=== PATIENT | female | born 1955 | race Caucasian/White ===

== ENCOUNTER 2017-08-09 21:34 | Emergency (ER) | payer BC ==
--- NOTE | 2017-08-09 21:44 | PDOC ---
History of Present Illness - General History Source: Patient Exam Limitations: No Limitations - History of Present Illness Initial Comments: 08/09/17 21:58 The patient is a 62 year old female with past medical history of depression and sciatica who presents to the ED with complaints of a left sided sciatica flare up that began today. The patient states that she is from [place] but is here for the month due to her mother undergoing a Gamma knife procedure. The patient states that her sciatica is overseen by a pain management physician but she forgot her medications at home. She denies any loss of sensation/tingling to the extremity. She denies any fever, chills, nausea, vomiting, diarrhea, cough, SOB, CP or urinary symptoms. <Johana Oneil - Last Filed: 08/09/17 21:58> <Veda Verdin - Last Filed: 08/10/17 02:53> - General Chief Complaint: Pain Stated Complaint: SCIATIC PAIN Time Seen by Provider: 08/09/17 21:43 Past History <Johana Oneil - Last Filed: 08/09/17 21:58> <Veda Verdin - Last Filed: 08/10/17 02:53> - Past Medical History Allergies/Adverse Reactions: Allergies Allergy/AdvReac Type Severity Reaction Status Date / Time No Known Allergies Allergy Unverified 08/09/17 21:35 Home Medications: Ambulatory Orders Aripiprazole [Abilify -] 30 mg PO DAILY 08/09/17 Clonazepam [Klonopin] 2 mg PO TID 08/09/17 Hydrocodone/Acetaminophen [Vicodin Es 7.5-300 mg Tablet] 2 each PO TID #30 tablet MDD 6 08/09/17 Hydrocodone/Acetaminophen [Vicodin Hp 10-300 mg Tablet] 1 each PO QID 08/09/17 Naproxen [Naprosyn -] 250 mg PO BID #60 tablet 08/09/17 Naproxen [Naprosyn -] 375 mg PO BID PRN 08/09/17 Trazodone HCl [Desyrel -] 225 mg PO HS 08/09/17 Review of Systems - Review of Systems Able to Perform ROS?: Yes Comments:: 08/09/17 21:58 CONSTITUTIONAL: Absent: fever, chills, diaphoresis, generalized weakness, malaise, loss of appetite HEENT: Absent: rhinorrhea, nasal congestion, throat pain, throat swelling, difficulty swallowing, mouth swelling, ear pain, eye pain, visual Changes CARDIOVASCULAR: Absent: chest pain, syncope, palpitations, irregular heart rate, lightheadedness , peripheral edema RESPIRATORY: Absent: cough, shortness of breath, dyspnea with exertion, orthopnea, wheezing, stridor, hemoptysis GASTROINTESTINAL: Absent: abdominal pain, abdominal distension, nausea, vomiting, diarrhea, constipation, melena, hematochezia GENITOURINARY: Absent: dysuria, frequency, urgency, hesitancy, hematuria, flank pain, genital pain MUSCULOSKELETAL: Present: left leg/buttock pain SKIN: Absent: rash, itching, pallor HEMATOLOGIC/IMMUNOLOGIC: Absent: easy bleeding, easy bruising, lymphadenopathy, frequent infections ENDOCRINE: Absent: unexplained weight gain, unexplained weight loss, heat intolerance, cold intolerance NEUROLOGIC: Present: Absent: headache, focal weakness or paresthesias, dizziness, unsteady gait, seizure, mental status changes, bladder or bowel incontinence PSYCHIATRIC: Absent: anxiety, depression, suicidal or homicidal ideation, hallucinations. All Other Systems: Reviewed and Negative <[facility] - Last Filed: 08/09/17 21:58> *Physical Exam - Vital Signs Last Vital Signs Temp Pulse Resp BP Pulse Ox 98.3 F 80 18 137/64 97 08/09/17 21:44 08/09/17 21:44 08/09/17 21:44 08/09/17 21:44 08/09/17 21:44 - Physical Exam Comments: 08/09/17 21:59 GENERAL: Well developed, well nourished. Awake and alert. No acute distress. HEENT: Normocephalic, atraumatic. PERRLA, EOMI. No conjunctival pallor. Sclera are non- icteric. Moist mucous membranes. Oropharynx is clear. NECK: Supple. Full ROM. No JVD. Carotid pulses 2+ and symmetric, without bruits. No thyromegaly. No lymphadenopathy. CARDIOVASCULAR: Regular rate and rhythm. No murmurs, rubs, or gallops. Distal pulses are 2+ and symmetric. PULMONARY: No evidence of respiratory distress. Lungs clear to auscultation bilaterally. No wheezing, rales or rhonchi. ABDOMINAL: Soft. Non-tender. Non-distended. No rebound or guarding. No organomegaly. Normoactive bowel sounds. MUSCULOSKELETAL Normal range of motion at all joints. No bony deformities or tenderness. No CVA tenderness. EXTREMITIES: No cyanosis. No clubbing. No edema. No calf tenderness. SKIN: Warm and dry. Normal capillary refill. No rashes. No jaundice. NEUROLOGICAL: Alert, awake, appropriate. Cranial nerves 2-12 intact. No deficits to light touch and temperature in face, upper extremities and lower extremities. No motor deficits in the in face, upper extremities and lower extremities. Normoreflexic in the upper and lower extremities. Normal speech. Toes are down-going bilaterally. Gait is normal without ataxia. PSYCHIATRIC: Cooperative. Good eye contact. Appropriate mood and affect. <Johana Oneil - Last Filed: 08/09/17 21:58> Medical Decision Making - Medical Decision Making 08/10/17 02:50 Pt has chronic sciatica and she left her narcotics and naproxen in [facility], where she lives. Now she is in [place] visiting her daughter and she needs her pain meds. She states that her sciatica pain is severe, however exam is normal. Pt will be give a 5 day supply of hydrocodone ES. Pt will be asked to call her PMD in [facility] to re-prescribe her meds, whiole she is in [place] visiting family. Pt's exam is normal, and hje straight leg raises are normal and she has no pain radiating to the low bcak or down the leds bilaterally, <Veda Verdin - Last Filed: 08/10/17 02:53> *DC/Admit/Observation/Transfer - Attestations Scribe Attestion: 08/09/17 21:59 Documentation prepared by Johana Oneil, acting as medical coder for Veda Verdin MD. <Johana Oneil - Last Filed: 08/09/17 21:58> - Discharge Dispostion Admit: No <Veda Verdin - Last Filed: 08/10/17 02:53> Diagnosis at time of Disposition: Medication refill, Chronic back pain - Discharge Dispostion Disposition: HOME Condition at time of disposition: Stable - Prescriptions Prescriptions: Naproxen [Naprosyn -] 250 mg PO BID #60 tablet Hydrocodone/Acetaminophen [Vicodin Es 7.5-300 mg Tablet] 2 each PO TID #30 tablet MDD 6 - Referrals Referrals: STAFF,NOT ON [Primary Care Provider] - - Patient Instructions Printed Discharge Instructions: Managing Chronic Low Back Pain
[2017-08-09] MEDS ORDERED: NAPROXEN 500 MG TABLET (FP) PO ONE (21:52)
[2017-08-09 21:53] VITALS: BP 137/64; PULSE 80; TEMP 98.3; BMI 28.1
[2017-08-09] MEDS ORDERED: NAPROXEN 500 MG TABLET (FP) ONE (21:57)
== END 2017-08-09 22:08 | disposition home or self-care (01) ==
LOC: FER 21:34
DX: Z76.0 Encounter for issue of repeat prescription (principal); M54.5 Low back pain; G89.29 Other chronic pain
CPT/HCPCS: 99282-25

== ENCOUNTER 2017-08-25 20:50 | Emergency (ER) | payer BC ==
[2017-08-25 21:16] VITALS: TEMP 98.6; BMI 28.1
[2017-08-25 21:47] VITALS: BP 171/73; PULSE 71
--- NOTE | 2017-08-25 22:14 | PDOC ---
History of Present Illness - General Chief Complaint: Edema Stated Complaint: SWELLING OF ANKLES Time Seen by Provider: 08/25/17 21:03 - History of Present Illness Initial Comments: This 62-year-old woman, visiting her daughter from [place], presents with a two-week history of gradual increase in bilateral ankle edema. Patient states that she has had development of ankle edema over the last year. She was seen by her doctor in [place] a few months ago and was started on Lasix (first at 40 mg dose, then doubled to 80 mg per day) to treat the edema. Patient states that she has not been diagnosed with any cardiac problems; a cardiac diagnostic workup was scheduled earlier this month, but patient was urgently needed here and she traveled to this area. Approximately 2 weeks ago, she ran out of her Lasix and her ankle edema recurred. Patient denies shortness of breath/ wheezing. She states that she has had a chronic cough for approximately t 6 months for which her doctors are aware and are evaluating. She was seen by order selector in [place] and her pulmonary function tests were apparently normal. She has no history of varicose veins or DVT. She states she has some pain in her left lower leg for the last several days; she fell 4 days ago, striking her anterior left knee/left mcneill, sustaining abrasions in this area . In the last few days, the abrasion of the mid anterior lower leg has been surrounded by an area of increased edema/redness/ pain. There has been no fever/chills, lymphangitic streaking or purulent discharge Past History - Past Medical History Allergies/Adverse Reactions: Allergies Allergy/AdvReac Type Severity Reaction Status Date / Time No Known Allergies Allergy Unverified 08/09/17 21:35 Home Medications: Ambulatory Orders Aripiprazole [Abilify -] 30 mg PO DAILY 08/09/17 Clonazepam [Klonopin] 2 mg PO TID 08/09/17 Naproxen [Naprosyn -] 375 mg PO BID PRN 08/09/17 Trazodone HCl [Desyrel -] 225 mg PO HS 08/09/17 Cephalexin [Keflex] 500 mg PO TID #20 capsule 08/25/17 Furosemide [Lasix -] 40 mg PO BID #30 tablet 08/25/17 Furosemide [Lasix] 40 mg PO DAILY 08/25/17 Oxycodone HCl/Acetaminophen [Percocet 5-325 mg Tablet] 1 tab PO Q6H 08/25/17 Potassium Chloride [K-Dur -] 20 meq PO DAILY #14 tablet.er 08/25/17 GI Disorders: Yes (ULCER) Psychiatric Problems: Yes - Suicide/Smoking/Psychosocial Hx Smoking History: Current some day smoker Have you smoked in the past 12 months: Yes Number of Cigarettes Smoked Daily: 10 Information on smoking cessation initiated: Yes 'Breaking Loose' booklet given: 08/09/17 Hx Alcohol Use: No Drug/Substance Use Hx: No Substance Use Type: Opiates, Prescribed Review of Systems - Review of Systems Able to Perform ROS?: Yes Comments:: 12 point review of systems is negative except for what is noted in the history of present illness *Physical Exam - Vital Signs Last Vital Signs Temp Pulse Resp BP Pulse Ox 98.6 F 71 16 171/73 97 08/25/17 20:52 08/25/17 21:46 08/25/17 21:46 08/25/17 21:46 08/25/17 21:46 - Physical Exam Comments: GENERAL: Adult female, alert and oriented 3, in no acute distress HEAD: Normal with no signs of trauma. EYES: PERRLA, EOMI, sclera anicteric, conjunctiva clear. ENT: Ears normal, nares patent, oropharynx clear without exudates. Dry mucous membranes. NECK: Normal range of motion, supple without lymphadenopathy, JVD, or masses. LUNGS: Breath sounds equal, clear to auscultation bilaterally. No wheezes, and no crackles. HEART:Regular rate and rhythm, normal S1 and S2 without murmur, rub or gallop. ABDOMEN:.normal bowel sounds No guarding,tenderness or rebound.No masses No distention. EXTREMITIES: 2+ nonpitting edema to distal lower extremities bilaterally; 1 cm x 1 cm abrasion mid anterior left lower leg with surrounding erythema ( moderately tender, non-fluctuant); 3 cm x 1 cm healing abrasion mid anterior patella (nontender, nonfluctuant) NEUROLOGICAL: Cranial nerves II through XII grossly intact. Normal speech. No focal neurological deficits. MUSCULOSKELETAL: Back non-tender to palpation, no CVA tenderness SKIN: Warm, Dry, normal turgor, no rashes or lesions noted. Progress Note - Progress Note Progress Note: Bilateral Doppler duplex studies performed to evaluate for acute DVT ( especially in light of patient's plan to return home by air in 5 days). Doppler duplex ultrasound studies of bilateral lower extremities negative for DVT or other abnormalities Since patient does not have any clinical evidence of CHF(clear lung euceda; 100 % oxygen saturation on room air), no further cardiac workup will be done. Since patient's edema worsened after Lasix and she apparently tolerated it well , will restart on the dosage that she was maintained on. The patient states that she also received potassium supplementation when she was on Lasix and this will be refilled also. Because patient has fair amount of edema in her lower legs and erythema/ tenderness of the area of the anterior tibial abrasion, she will be started on Keflex 500 mg 3 times a day for the next week. She should return to the emergency room if she has any evidence of worsening of the pain/redness/edema or if she develops fever or chills. She should follow-up with her general doctor when she returns home early next week. *DC/Admit/Observation/Transfer Diagnosis at time of Disposition: Ankle edema, bilateral Cellulitis Qualifiers: Site of cellulitis: extremity Site of cellulitis of extremity: lower extremity Laterality: left Qualified Code(s): L03.116 - Cellulitis of left lower limb - Discharge Dispostion Disposition: HOME Condition at time of disposition: Stable - Prescriptions Prescriptions: Potassium Chloride [K-Dur -] 20 meq PO DAILY #14 tablet.er Cephalexin [Keflex] 500 mg PO TID #20 capsule Furosemide [Lasix -] 40 mg PO BID #30 tablet - Patient Instructions Printed Discharge Instructions: DI for Peripheral Edema -- Bilateral Additional Instructions: Elevate legs as much as possible Keflex 500 mg 3 times a day for 1 week Continue Lasix 80 mg as per your general doctor Continue potassium supplementation 20 mEq daily Return to ER if you have worsening redness/swelling/pain in left leg Follow-up with your general doctor when you return home
[2017-08-25] MEDS ORDERED: CEPHALEXIN MONOHYDRATE 500 MG CAPSULE (UD) PO ONE (23:50)
[2017-08-25] MEDS ORDERED: CEPHALEXIN MONOHYDRATE 500 MG CAPSULE (UD) ONE (23:52)
== END 2017-08-26 | disposition home or self-care (01) ==
LOC: FER 20:50
DX: M25.471 Effusion, right ankle (principal); L03.116 Cellulitis of left lower limb; M25.472 Effusion, left ankle
CPT/HCPCS: 93970-TC; 99282-25